=== PATIENT | male | born 1995 | race Caucasian/White ===

== ENCOUNTER 2019-06-28 00:13 | Emergency (ER) | payer BC ==
[~2019-06-28] VITALS: Ht 182.9 cm; Wt 81.8 kg
[~2019-06-28 00:13] MED LIST: NO HOME MEDICATIONS; ULTRAM 50MG TAB50 MG PO
[2019-06-28 00:35] VITALS: TEMP 97.8
[2019-06-28 04:04] VITALS: BP 124/76; PULSE 94
== END 2019-06-28 04:06 | disposition home or self-care (01) ==
LOC: COL.ER 00:13
DX: S43.084A Other dislocation of right shoulder joint, initial encounter (principal); W19.XXXA Unspecified fall, initial encounter; Y92.009 Unspecified place in unspecified non-institutional (private) residence as the place of occurrence of the external cause
CPT/HCPCS: J2704; J3010; J7030